=== PATIENT | female | born 1960 | race Caucasian/White ===

== ENCOUNTER 2023-09-28 17:07 | Observation (INO) ==
--- NOTE | 2023-09-28 17:22 | ED Triage Note ---
Date of Service September 28, 2023 Provider in Triage Author: Latasha Euceda History of Present Illness This patient was briefly evaluated while in triage. An abbreviated physical exam was performed. This patient is a 63-year-old Female who presents to the ED for evaluation of headache on left back of head and radiates to the front of the forehead, sudden onset at about 1pm today. Feeling dizzy as well. Has history of migraines, but hasn't had a significant one for three years. Feels weakness in the left shoulder, trouble lifting arm above head. No blood thinners. Physical Exam CONSTITUTIONAL: No acute distress. Well appearing. HEENT: PERRL, no facial droop NECK: Full ROM RESPIRATORY: Clear to auscultation bilaterally. Equal expansion bilaterally. CARDIOVASCULAR: Regular rate and rhythm. Normal peripheral perfusion. GASTROINTESTINAL: Soft NEUROLOGIC: Alert and oriented X 4 with normal affect. Slight weakness appreciated in left arm compared to right. No left leg weakness noted. No pronator drift. Seems off balance with standing/walking and notes feeling dizzy. Initial orders for labs and / or imaging were placed and patient was made a stroke alert, taken directly to CT from triage. Please see further documentation for the full ED course.
--- NOTE | 2023-09-28 17:36 | Emergency Department Note ---
Impression & Plan Left arm weakness, Hyponatremia, Headache ED Provider Note NAME: NIKUNJ STAPLETON AGE: 63 SEX: F : 1960 ARRIVES VIA: Walk-In INFORMANT: Patient, Triage report ED PROVIDER(S): Basilio Barahona MD CHIEF COMPLAINT: Left arm weakness, headache MEDICAL DECISION MAKING: Patient presents due to concern for left upper extremity weakness and associated headache. Code stroke was initiated from triage. Patient was evaluated after returning from CAT scan current NIH of 0. Patient may have subjective weakness but at least on exam does not have overt weakness although this also could have resolved. Patient CT head and CT angiography of the head and neck are negative. The patient was ordered headache cocktail. Blood work was also obtained at the initial time of presentation. No TNK given the patient's lack of deficits on exam and negative CT head and CT angiography of the head and neck. Patient with white count of 12 with a normal hemoglobin and platelet count kidney function unremarkable patient was noted to have hyponatremia of 127. The patient may have associated TIA related symptoms as the patient had complained of some left arm weakness. The patient did not have significant improvement with regard to her headache further management deferred to inpatient team as I did speak with the hospital service Dr. Lopez and the patient was admitted to the medicine service. Critical Care: I have personally spent 35 minutes of critical care time in direct management of this patient. This includes bedside care, interpretation of diagnostic studies, and testing, discussion with consultants, patient, and family members, and other require inpatient management activities. This 35 minutes is in excess of all separately billable procedures. Discussion w/ other healthcare providers: Dr. Lopez inpatient medicine service Prior /Outside records reviewed: None Differential diagnosis: Infection, dehydration, metabolic abnormality, hypo/hyperglycemia, electrolyte imbalance, anemia, UTI, pneumonia, thyroid dysfunction among others were considered. Diagnostics, as interpreted by me: ECG: Normal sinus rhythm, rate of 88, normal intervals, normal axis no ST elevations or TWI. Cardiac monitoring: An order was placed for continuous cardiac monitoring. The monitor shows a rate of 85 with sinus rhythm. Patient was placed on pulse oximetry Medical decision rules: None Imaging studies: I informally interpreted the patient's CT head does not show obvious ICH with formal report to follow. I informally interpreted the patient's chest x-ray which does not show obvious pneumonia or pneumothorax with formal report to follow. HPI: Patient presents due to concern for headache and left upper extremity weakness. The patient states that around 130 2:00 she was with her grandson when she developed a left-sided posterior headache which she described as "being struck with a softball." Patient denies any chest pains or shortness of breath no nausea vomiting. The patient states that her current headache pain is 7 out of 10 and has been constant. The patient thought that she did have associated left upper extremity weakness and the stroke here for evaluation. The patient does have a prior history of A-fib but is not anticoagulated. Patient denies any sensory deficits slurred speech or facial droop. No prior history of stroke or mini stroke or seizure. Patient denies any lower extremity weakness. Patient states that she is right-hand dominant. Patient states that she did try taking gabapentin for headache but this has not improved her symptoms. PAST MEDICAL HISTORY: See Below PAST SURGICAL HISTORY: See Below SOCIAL HISTORY: See Below HOME MEDICATIONS: See Below ALLERGIES: See Below VITALS: See Below PHYSICAL EXAMINATION: GENERAL: NAD, non-toxic. EYE EXAM: Normal conjunctiva. PERRL, no anisocoria and EOM's grossly intact w/o pain. OROPHARYNX: Moist mucus membranes, grossly normal dentition. NECK: Trachea midline, no stridor. Supple, no nuchal rigidity, no adenopathy, non-tender. No signs of meningismus. FROM of the neck with good chin to chest and neck extension. LUNGS: Clear to auscultation. Normal chest wall mechanics. HEART: NSR, no MRG. ABDOMEN: Abdomen soft, non-tender, no masses, no rebound or guarding. BACK: No CVA TTP. SKIN: No rashes and no bruising. UPPER EXTREMITIES: Upper extremities are grossly normal. LOWER EXTREMITIES: Grossly normal, no edema. NEURO EXAM: A&O x3, cranial nerves II-XII grossly intact, normal speech, moves all 4 extremities. 5 out of 5 strength in the bilateral upper and lower extremities no sensory deficits, good [id number] and no drift. Past Med/Surg History Problem List (Updated 09/29/23 @ 00:56 by Basilio Barahona MD) Headache (Acute) Hyponatremia (Acute) Left arm weakness (Acute) Hyponatremia Left-sided weakness Migraine H/O of hysterectomy with bilateral oophorectomy Esophageal reflux Seizure Irritable bowel syndrome Osteoarthritis HTN, goal below 140/90 COPD (chronic obstructive pulmonary disease) Fibromyalgia Atrial fibrillation (Chronic) Cervical radiculopathy (Acute) Medical History Status post myocardial infarction at age 24 Work related injury Surgical History S/P hysterectomy S/P cholecystectomy S/P appendectomy History of bilateral breast reduction surgery History of Julia-en-Y gastric bypass Family History Mother Breast cancer Ovarian cancer Myocardial infarction Pancreatitis Aunt Breast cancer Father Myocardial infarction Kidney failure Sister Myocardial infarction Brother Myocardial infarction Other Adrenal abnormality Denies family history of Colon cancer Prostate cancer Social History Smoking Status: Never smoker Second Hand Exposure: No; Do You Dip or Chew Tobacco: No; Hx Alcohol Use: No Hx Substance Use: No Preferred Language: Amharic Communication Ability: Effective Visual Impairment: No Limitations Hearing Ability: Normal [employer] Required: No Beliefs That Will Affect Care: None marital status: Current Living Situation: Spouse Current Living Situation Comment: with current occupational status: retired Other Information That Helps Us Care for You: No Feels Safe at Home: Yes Safety Concerns: Feels Safe At This Time Childhood Exposure to Second-Hand Smoke: Yes Diet: regular caffeine: Yes Dental Care, Regularly: Yes Physical Activity Frequency: Daily Seatbelt Use: sometimes Sunscreen Use: Yes Assistive Devices: None Allergies Allergies Allergy/AdvReac Type Severity Reaction Status Date / Time codeine Allergy Severe SHORT OF Verified 09/28/23 17:58 BREATH/RESP TROUBLE meperidine Allergy Severe SHORT OF Verified 09/28/23 17:58 BREATH/RESP TROUBLE Home Meds Home Medications Medication Instructions Recorded Confirmed atorvastatin 20 mg tablet 20 mg PO DAILY 05/07/22 09/28/23 diclofenac potassium 50 mg tablet 50 mg PO BID 05/07/22 09/28/23 diclofenac sodium 1 % topical gel 4 g topical DIRECTED PRN Pain 05/07/22 09/28/23 fluticasone 250 mcg-salmeterol 50 1 inh inhalation BID PRN Shortness 05/07/22 09/28/23 mcg/dose blistr powdr for Of Breath Or Wheezing inhalation (Advair Diskus) furosemide 40 mg tablet 40 mg PO DAILY 05/07/22 09/28/23 gabapentin 600 mg tablet 600 mg PO TID 05/07/22 09/28/23 lamotrigine 100 mg tablet 100 mg PO BID 05/07/22 09/28/23 meloxicam 15 mg tablet 15 mg PO DAILY 05/07/22 09/28/23 metaxalone 800 mg tablet 800 mg PO TID PRN NEEDED PER PT. 05/07/22 09/28/23 metoprolol tartrate 50 mg tablet 50 mg PO BID 05/07/22 09/28/23 sodium oxybate 500 mg/mL oral 1 g PO BID 05/07/22 09/28/23 solution (Xyrem) cyanocobalamin (vitamin B-12) 100 mcg IM MONTHLY 11/08/22 09/28/23 1,000 mcg/mL injection solution celecoxib 200 mg capsule (Celebrex) 200 mg PO DAILY 08/19/23 09/28/23 pantoprazole 40 mg tablet,delayed 40 mg PO DAILY 08/19/23 09/28/23 release rimegepant 75 mg disintegrating 75 mg PO DAILY PRN Migraine 08/19/23 09/28/23 tablet (Nurtec ODT) Headache pantoprazole 40 mg tablet,delayed 4 mg PO DIRECTED PRN 09/28/23 09/28/23 release NAUSEA/VOMITING Results & Data (ED) Vital Signs Vital Signs - 24 hr 09/28/23 17:17 09/28/23 17:44 09/28/23 17:44 Temperature 37.4 C Temperature Source Temporal Artery Scan Pulse Rate 97 H Pulse Rate [Apical] 91 H Pulse Rate from SpO2 Sensor Pulse Rhythm Regular Pulse Rhythm [Apical] Pulse Strength Normal Pulse Strength [Apical] Respiratory Rate 17 20 Respiratory Effort / Characteristics Non-Labored Non-Labored Respiratory Depth Normal Normal Respiratory Pattern Regular Blood Pressure 110/72 Blood Pressure [Right Arm] 148/78 H Blood Pressure Mean 84 Blood Pressure Mean [Right Arm] 101 Blood Pressure Position Sitting Blood Pressure Position [Right Arm] Pulse Oximetry 94 93 93 Oxygen Delivery Method Room Air Room Air Room Air Sepsis Recent Fever Within 48 Hours No Sepsis New/Unexplained Change in Mental Status No Sepsis Action Taken by Nursing No Action Required 09/28/23 17:54 09/28/23 18:00 09/28/23 18:00 Temperature Temperature Source Pulse Rate 88 88 Pulse Rate [Apical] Pulse Rate from SpO2 Sensor 88 88 Pulse Rhythm Pulse Rhythm [Apical] Pulse Strength Pulse Strength [Apical] Respiratory Rate 16 15 Respiratory Effort / Characteristics Respiratory Depth Respiratory Pattern Blood Pressure 112/81 Blood Pressure [Right Arm] Blood Pressure Mean 82 Blood Pressure Mean [Right Arm] Blood Pressure Position Blood Pressure Position [Right Arm] Pulse Oximetry 96 96 Oxygen Delivery Method Sepsis Recent Fever Within 48 Hours Sepsis New/Unexplained Change in Mental Status Sepsis Action Taken by Nursing 09/28/23 18:02 09/28/23 18:24 09/28/23 18:39 Temperature Temperature Source Pulse Rate 88 92 H Pulse Rate [Apical] 90 Pulse Rate from SpO2 Sensor Pulse Rhythm Pulse Rhythm [Apical] Pulse Strength Pulse Strength [Apical] Respiratory Rate 20 25 H 25 H Respiratory Effort / Characteristics Non-Labored Respiratory Depth Normal Respiratory Pattern Blood Pressure Blood Pressure [Right Arm] 112/81 Blood Pressure Mean Blood Pressure Mean [Right Arm] 91 Blood Pressure Position Blood Pressure Position [Right Arm] Pulse Oximetry 98 Oxygen Delivery Method Room Air Sepsis Recent Fever Within 48 Hours Sepsis New/Unexplained Change in Mental Status Sepsis Action Taken by Nursing 09/28/23 18:41 09/28/23 18:42 09/28/23 18:51 Temperature Temperature Source Pulse Rate 88 92 H 93 H Pulse Rate [Apical] Pulse Rate from SpO2 Sensor Pulse Rhythm Pulse Rhythm [Apical] Pulse Strength Pulse Strength [Apical] Respiratory Rate 26 H 22 Respiratory Effort / Characteristics Respiratory Depth Respiratory Pattern Blood Pressure Blood Pressure [Right Arm] Blood Pressure Mean Blood Pressure Mean [Right Arm] Blood Pressure Position Blood Pressure Position [Right Arm] Pulse Oximetry Oxygen Delivery Method Sepsis Recent Fever Within 48 Hours Sepsis New/Unexplained Change in Mental Status Sepsis Action Taken by Nursing 09/28/23 19:35 09/28/23 19:35 09/28/23 19:42 Temperature Temperature Source Pulse Rate 86 Pulse Rate [Apical] 86 Pulse Rate from SpO2 Sensor 86 Pulse Rhythm Pulse Rhythm [Apical] Regular Pulse Strength Pulse Strength [Apical] Normal Respiratory Rate 12 22 Respiratory Effort / Characteristics Non-Labored Respiratory Depth Normal Respiratory Pattern Regular Blood Pressure 112/68 Blood Pressure [Right Arm] 112/68 Blood Pressure Mean 75 Blood Pressure Mean [Right Arm] 82 Blood Pressure Position Blood Pressure Position [Right Arm] Lying Pulse Oximetry 93 92 Oxygen Delivery Method Room Air Sepsis Recent Fever Within 48 Hours Sepsis New/Unexplained Change in Mental Status Sepsis Action Taken by [facility] Medications Current Medication List: was personally reviewed by me Laboratory Data Attestation: I reviewed the patient's lab results. 09/28/23 17:41 09/28/23 23:24 Lab Results 09/28/23 09/28/23 09/28/23 Range/Units 17:28 17:41 19:26 WBC 12.51 H (4.8-10.8) K/ul RBC 4.08 L (4.20-5.40) M/uL Hgb 12.0 (12.0-16.0) g/dl Hct 36.2 L (37.0-47.0) % MCV 88.7 (80.0-100.0) fL MCH 29.4 (25.0-34.0) pg MCHC 33.1 (32.0-36.0) g/dL RDW Std Deviation 43.9 (36.4-46.3) fL RDW Coeff of Mary Carmen 13.6 (11.5-14.5) % Plt Count 202 (130-400) K/uL MPV 10.6 (9.4-12.4) fL Immature Gran % (Auto) 0.4 % Neut % (Auto) 90.2 % Lymph % (Auto) 4.6 % Long % (Auto) 4.6 % Eos % (Auto) 0.0 % Baso % (Auto) 0.2 % Neut # (Auto) 11.30 H (1.40-6.50) K/uL Lymph # (Auto) 0.57 L (1.20-3.40) K/uL Long # (Auto) 0.57 (0.11-0.59) K/uL Eos # (Auto) 0.00 (0.00-0.50) K/uL Baso # (Auto) 0.02 (0.00-0.20) K/uL Immature Gran # (Auto) 0.05 (0.01-0.20) K/uL PT 11.4 (9.0-12.0) Seconds INR 1.1 (0.9-1.1) APTT 27 (21-31) Seconds PTT Ratio 1.0 Sodium 127 L (136-145) mmol/L Potassium 3.8 (3.5-5.1) mmol/L Chloride 100 (98-107) mmol/L Carbon Dioxide 21 (21-32) mmol/L Anion Gap 6 (3-11) BUN 17 (6-23) mg/dl Creatinine 0.95 (0.6-1.2) mg/dl Est Cr Clr Drug Dosing 45.7 ml/min Est GFR ( Amer) 73.9 ml/min Est GFR (Non-Af Amer) 63.7 ml/min BUN/Creatinine Ratio 17.9 (10-20) Glucose 114 H (70-99(Fasting)) mg/dl Osmolality 284 (280-300) mOsm/kg Calcium 8.3 L (8.6-10.3) mg/dl Magnesium 1.8 (1.7-2.4) mg/dl Total Bilirubin 0.8 (0.2-1.0) mg/dl AST 17 (13-39) U/L ALT 15 (7-52) U/L Alkaline Phosphatase 117 H (34-104) U/L Troponin I High Sens (0-14) pg/ml Total Protein 6.3 (6.0-8.3) gm/dl Albumin 3.8 (3.4-5.0) gm/dl Globulin 2.5 (2.5-4.0) gm/dl Albumin/Globulin Ratio 1.5 (0.9-2) Urine Osmolality 320 L (500-800) mOsm/kg Urine Sodium 49 mmol/L Urine Potassium 23.1 mmol/L Urine Chloride 50 mmol/L Blood Type O Positive Antibody Screen NEGATIVE 09/28/23 Range/Units 19:50 WBC (4.8-10.8) K/ul RBC (4.20-5.40) M/uL Hgb (12.0-16.0) g/dl Hct (37.0-47.0) % MCV (80.0-100.0) fL MCH (25.0-34.0) pg MCHC (32.0-36.0) g/dL RDW Std Deviation (36.4-46.3) fL RDW Coeff of Mary Carmen (11.5-14.5) % Plt Count (130-400) K/uL MPV (9.4-12.4) fL Immature Gran % (Auto) % Neut % (Auto) % Lymph % (Auto) % Long % (Auto) % Eos % (Auto) % Baso % (Auto) % Neut # (Auto) (1.40-6.50) K/uL Lymph # (Auto) (1.20-3.40) K/uL Long # (Auto) (0.11-0.59) K/uL Eos # (Auto) (0.00-0.50) K/uL Baso # (Auto) (0.00-0.20) K/uL Immature Gran # (Auto) (0.01-0.20) K/uL PT (9.0-12.0) Seconds INR (0.9-1.1) APTT (21-31) Seconds PTT Ratio Sodium (136-145) mmol/L Potassium (3.5-5.1) mmol/L Chloride (98-107) mmol/L Carbon Dioxide (21-32) mmol/L Anion Gap (3-11) BUN (6-23) mg/dl Creatinine (0.6-1.2) mg/dl Est Cr Clr Drug Dosing ml/min Est GFR ( Amer) ml/min Est GFR (Non-Af Amer) ml/min BUN/Creatinine Ratio (10-20) Glucose (70-99(Fasting)) mg/dl Osmolality (280-300) mOsm/kg Calcium (8.6-10.3) mg/dl Magnesium (1.7-2.4) mg/dl Total Bilirubin (0.2-1.0) mg/dl AST (13-39) U/L ALT (7-52) U/L Alkaline Phosphatase (34-104) U/L Troponin I High Sens 4.0 (0-14) pg/ml Total Protein (6.0-8.3) gm/dl Albumin (3.4-5.0) gm/dl Globulin (2.5-4.0) gm/dl Albumin/Globulin Ratio (0.9-2) Urine Osmolality (500-800) mOsm/kg Urine Sodium mmol/L Urine Potassium mmol/L Urine Chloride mmol/L Blood Type Antibody Screen Administered Medications Gabapentin (Gabapentin 600 Mg Tab) 600 mg PO TID EILEEN Stop: 10/28/23 23:01 Last Admin: 09/29/23 00:37 Dose: 600 mg Documented By: [id number] Heparin Sodium (Porcine) (Heparin Sod 5,000 Unit/0.5 Ml Vial) 5,000 units SQ Q12 [facility] Stop: 10/28/23 23:01 Last Admin: 09/29/23 00:37 Dose: 5,000 units Documented By: [id number] Ketorolac Tromethamine (Ketorolac Tromethamine 15 Mg/Ml Vial) 10 mg IV Q6H PRN PRN Reason: Pain Stop: 10/04/23 00:00 Last Admin: 09/28/23 23:48 Dose: 10 mg Documented By: [id number] Lamotrigine (Lamotrigine 100 Mg Tab) 100 mg PO BID [facility]; Protocol Stop: 10/28/23 23:01 Last Admin: 09/29/23 00:37 Dose: 100 mg Documented By: [id number] Metoprolol Tartrate (Metoprolol Tartrate 50 Mg Tab) 50 mg PO BID [facility] Stop: 10/28/23 23:01 Last Admin: 09/29/23 00:37 Dose: 50 mg Documented By: [id number] Discontinued Medications Acetaminophen (Acetaminophen 500 Mg Tab) 1,000 mg PO NOW STA Stop: 09/28/23 18:09 Last Admin: 09/28/23 18:15 Dose: 1,000 mg Documented By: FANTASMA Aspirin (Aspirin Chew 324 Mg) 324 mg PO NOW STA Stop: 09/28/23 18:43 Last Admin: 09/28/23 19:38 Dose: 324 mg Documented By: JOSH Sodium Chloride (Nss) 1,000 mls @ 999 mls/hr IV .Q1H1M [facility] Stop: 09/28/23 19:15 Last Infusion: 09/28/23 19:12 Dose: Infused Documented By: Admin: 09/28/23 18:11 Dose: 999 mls/hr Documented By: FANTASMA Magnesium Sulfate/Dextrose (Magnesium Sulfate / D5w) 1 gm in 100 mls @ 300 mls/hr IV NOW ONE Stop: 09/28/23 18:27 Last Infusion: 09/28/23 19:00 Dose: Infused Documented By: Admin: 09/28/23 18:15 Dose: 300 mls/hr Documented By: FANTASMA Ioversol (Optiray 320 125ml) 120 ml IV ONCE ONE Stop: 09/28/23 17:37 Last Admin: 09/28/23 17:37 Dose: 120 ml Documented By: JERRY Ketorolac Tromethamine (Ketorolac Tromethamine 15 Mg/Ml Vial) 10 mg IV NOW STA Stop: 09/28/23 18:09 Last Admin: 09/28/23 18:15 Dose: 10 mg Documented By: ES Ondansetron HCl (Ondansetron Inj 2 Mg/Ml 2 Ml Vial) 4 mg IV NOW STA Stop: 09/28/23 18:09 Last Admin: 09/28/23 18:15 Dose: 4 mg Documented By: ES Imaging Data Radiologist's Impression: Head CT 09/28/23 17:23 CT angio head w con, CT angio neck with con, CT head/brain wo con CLINICAL HISTORY: 63 years-old Female with neuro deficit, acute stroke suspected. Acute headache with dizziness COMPARISON STUDY: None TECHNIQUE: Unenhanced axial CT scan of the brain is performed. Subsequently, following the IV administration of 120 cc of Optiray, CT angiogram of the head and neck was performed from the aortic arch to the skull apex. Images are reviewed in the axial, sagittal, and coronal planes. 3-D MIPS images are created and assessed. IV contrast was administered without complication. All measurements were obtained according to NASCET criteria. A dose lowering technique was utilized adhering to the principles of ALARA. CT DOSE: 1053.42 mGy.cm FINDINGS: CT BRAIN: There is no acute intracranial hemorrhage, midline shift, hydrocephalus, intracranial mass, territorial ischemia or abnormal extra-axial collections. Involutional changes with white matter hypodensities suggestive of probable chronic microvascular ischemic disease. No abnormal intra-axial or extra-axial enhancement. Mastoid air cells and middle ear cavities are clear. No calvarial fracture. Paranasal sinuses are clear. CT ANGIOGRAM OF THE HEAD AND NECK: Atherosclerosis of the thoracic aorta. Into the innominate imaged subclavian arteries. The common and internal carotid arteries appear patent. There is mild atherosclerotic plaque of the carotid bulbs without significant stenosis. The bilateral anterior and middle cerebral arteries are also patent. The vertebrobasilar system and posterior cerebral arteries are widely patent. There is no aneurysm, high-grade stenosis, or proximal branch occlusion identified. Dural sinuses appear patent. Lung apices are clear. Unremarkable thyroid. Degenerative changes of the cervical spine. IMPRESSION: 1. No acute intracranial abnormality. 2. Unremarkable CTA of the head and neck. ACT 112: Negative or not required by law. The above report was generated using voice recognition software. It may contain grammatical, syntax or spelling errors. Electronically signed by: Emerson Camacho M.D. 09/28/2023 5:53 PM Chest X-Ray 09/28/23 17:26 XR chest 1V portable HISTORY: 63 years-old Female neuro deficit, acute stroke suspected acute strokelike symptoms COMPARISON: 09/12/2011 TECHNIQUE: AP view of the chest FINDINGS: Cardiomediastinal and hilar silhouettes are within normal limits. Mild right hemidiaphragmatic elevation. No pneumothorax, pleural effusion, airspace consolidation or pulmonary edema. Bones appear intact. IMPRESSION: No acute process. ACT 112: Negative or not required by law. The above report was generated using voice recognition software. It may contain grammatical, syntax or spelling errors. Electronically signed by: Emerson Camacho M.D. 09/28/2023 6:19 PM Head CTA 09/28/23 17:26 CT angio head w con, CT angio neck with con, CT head/brain wo con CLINICAL HISTORY: 63 years-old Female with neuro deficit, acute stroke suspected. Acute headache with dizziness COMPARISON STUDY: None TECHNIQUE: Unenhanced axial CT scan of the brain is performed. Subsequently, following the IV administration of 120 cc of Optiray, CT angiogram of the head and neck was performed from the aortic arch to the skull apex. Images are reviewed in the axial, sagittal, and coronal planes. 3-D MIPS images are created and assessed. IV contrast was administered without complication. All measurements were obtained according to NASCET criteria. A dose lowering technique was utilized adhering to the principles of ALARA. CT DOSE: 1053.42 mGy.cm FINDINGS: CT BRAIN: There is no acute intracranial hemorrhage, midline shift, hydrocephalus, intracranial mass, territorial ischemia or abnormal extra-axial collections. Involutional changes with white matter hypodensities suggestive of probable chronic microvascular ischemic disease. No abnormal intra-axial or extra-axial enhancement. Mastoid air cells and middle ear cavities are clear. No calvarial fracture. Paranasal sinuses are clear. CT ANGIOGRAM OF THE HEAD AND NECK: Atherosclerosis of the thoracic aorta. Into the innominate imaged subclavian arteries. The common and internal carotid arteries appear patent. There is mild atherosclerotic plaque of the carotid bulbs without significant stenosis. The bilateral anterior and middle cerebral arteries are also patent. The vertebrobasilar system and posterior cerebral arteries are widely patent. There is no aneurysm, high-grade stenosis, or proximal branch occlusion identified. Dural sinuses appear patent. Lung apices are clear. Unremarkable thyroid. Degenerative changes of the cervical spine. IMPRESSION: 1. No acute intracranial abnormality. 2. Unremarkable CTA of the head and neck. ACT 112: Negative or not required by law. The above report was generated using voice recognition software. It may contain grammatical, syntax or spelling errors. Electronically signed by: Emerson Camacho M.D. 09/28/2023 5:53 PM Neck CTA 09/28/23 17:26 CT angio head w con, CT angio neck with con, CT head/brain wo con CLINICAL HISTORY: 63 years-old Female with neuro deficit, acute stroke suspected. Acute headache with dizziness COMPARISON STUDY: None TECHNIQUE: Unenhanced axial CT scan of the brain is performed. Subsequently, following the IV administration of 120 cc of Optiray, CT angiogram of the head and neck was performed from the aortic arch to the skull apex. Images are reviewed in the axial, sagittal, and coronal planes. 3-D MIPS images are created and assessed. IV contrast was administered without complication. All measurements were obtained according to NASCET criteria. A dose lowering technique was utilized adhering to the principles of ALARA. CT DOSE: 1053.42 mGy.cm FINDINGS: CT BRAIN: There is no acute intracranial hemorrhage, midline shift, hydrocephalus, intracranial mass, territorial ischemia or abnormal extra-axial collections. Involutional changes with white matter hypodensities suggestive of probable chronic microvascular ischemic disease. No abnormal intra-axial or extra-axial enhancement. Mastoid air cells and middle ear cavities are clear. No calvarial fracture. Paranasal sinuses are clear. CT ANGIOGRAM OF THE HEAD AND NECK: Atherosclerosis of the thoracic aorta. Into the innominate imaged subclavian arteries. The common and internal carotid arteries appear patent. There is mild atherosclerotic plaque of the carotid bulbs without significant stenosis. The bilateral anterior and middle cerebral arteries are also patent. The vertebrobasilar system and posterior cerebral arteries are widely patent. There is no aneurysm, high-grade stenosis, or proximal branch occlusion identified. Dural sinuses appear patent. Lung apices are clear. Unremarkable thyroid. Degenerative changes of the cervical spine. IMPRESSION: 1. No acute intracranial abnormality. 2. Unremarkable CTA of the head and neck. ACT 112: Negative or not required by law. The above report was generated using voice recognition software. It may contain grammatical, syntax or spelling errors. Electronically signed by: Emerson Camacho M.D. 09/28/2023 5:53 PM Discharge Plan Visit Data Chief Complaint: Head Pain Stated Complaint: LOWER BACK OF HEAD, INTO EYE PAINS ED Provider: Basilio Barahona Discharge Problem: Left arm weakness, Hyponatremia, Headache Patient Disposition: Admitted As Inpatient Discharge Instructions Interventions: ED Discharge Assessment Last Done: 09/28/23 22:42 Discharge Problem: Headache Qualifiers: Headache type: unspecified Headache chronicity pattern: acute headache I ntractability: intractable Qualified Code(s): R51.9 - Headache, unspecified
[2023-09-28] MEDS: OPTIRAY 320 125ml IV ONE (17:37)
--- NOTE | 2023-09-28 17:55 | CT Scan Report ---
CT angio head w con, CT angio neck with con, CT head/brain wo con CLINICAL HISTORY: 63 years-old Female with neuro deficit, acute stroke suspected. Acute headache w ith dizziness COMPARISON STUDY: None TECHNIQUE: Unenhanced axial CT scan of the brain is performed. Subsequently, following the IV adminis tration of 120 cc of Optiray, CT angiogram of the head and neck was performed from the aortic arch to the skull apex. Images are reviewed in the axial, sagittal, and coronal planes. 3-D MIPS images are created and assessed. IV contrast was administered without complication. All measurements were obtain ed according to NASCET criteria. A dose lowering technique was utilized adhering to the principles of ALARA. CT DOSE: 1053.42 mGy.cm FINDINGS: CT BRAIN: There is no acute intracranial hemorrhage, midline shift, hydrocephalus, intracranial mass, territori al ischemia or abnormal extra-axial collections. Involutional changes with white matter hypodensities suggestive of probable chronic microvascular ischemic disease. No abnormal intra-axial or extra-axia l enhancement. Mastoid air cells and middle ear cavities are clear. No calvarial fracture. Paranasal sinuses are clear. CT ANGIOGRAM OF THE HEAD AND NECK: Atherosclerosis of the thoracic aorta. Into the innominate imaged subclavian arteries. The common and internal carotid arteries appear patent. There is mild atherosclerotic plaque of the carotid bulbs w ithout significant stenosis. The bilateral anterior and middle cerebral arteries are also patent. The vertebrobasilar system and posterior cerebral arteries are widely patent. There is no aneurysm, high -grade stenosis, or proximal branch occlusion identified. Dural sinuses appear patent. Lung apices are clear. Unremarkable thyroid. Degenerative changes of the cervical spine. IMPRESSION: 1. No acute intracranial abnormality. 2. Unremarkable CTA of the head and neck. ACT 112: Negative or not required by law. The above report was generated using voice recognition software. It may contain grammatical, syntax o r spelling errors. Electronically signed by: Emerson Camacho M.D. 09/28/2023 5:53 PM
[2023-09-28 18:04] LABS: Hematocrit (blood only) 36.2 % (37.0-47.0); Mean Corpuscular Hemoglobin 29.4 pg (25.0-34.0); Mean Corpuscular Hgb Conc 33.1 g/dL (32.0-36.0); Mean Corpuscular Volume 88.7 fL (80.0-100.0); Mean Platelet Volume 10.6 fL (9.4-12.4); Platelet Count 202 K/uL (130-400); RDW Coefficient of Variation 13.6 % (11.5-14.5); RDW Standard Deviation 43.9 fL (36.4-46.3); Red Blood Count 4.08 M/uL (4.20-5.40); White Blood Count 12.51 K/ul (4.8-10.8)
[2023-09-28] MEDS: SODIUM CHLORIDE 0.9% 1,000 ML IV SCH (18:11)
[2023-09-28] MEDS: ONDANSETRON INJ 2 MG/ML 2 ML VIAL IV STA (18:15)
[2023-09-28] MEDS: ACETAMINOPHEN 500 MG TAB PO STA (18:15)
[2023-09-28] MEDS: KETOROLAC TROMETHAMINE 15 MG/ML VIAL IV STA (18:15)
[2023-09-28] MEDS: MAGNESIUM SULFATE / D5W 1 GM/100 ML BAG IV ONE (18:15)
--- NOTE | 2023-09-28 18:20 | XRay Report ---
XR chest 1V portable HISTORY: 63 years-old Female neuro deficit, acute stroke suspected acute strokelike symptoms COMPARISON: 09/12/2011 TECHNIQUE: AP view of the chest FINDINGS: Cardiomediastinal and hilar silhouettes are within normal limits. Mild right hemidiaphragmatic elevat ion. No pneumothorax, pleural effusion, airspace consolidation or pulmonary edema. Bones appear intac t. IMPRESSION: No acute process. ACT 112: Negative or not required by law. The above report was generated using voice recognition software. It may contain grammatical, syntax o r spelling errors. Electronically signed by: Emerson Camacho M.D. 09/28/2023 6:19 PM
[2023-09-28 18:23] LABS: Basophils # (auto) 0.02 K/uL (0.00-0.20); Basophils % (auto) 0.2 %; Immature Granulocytes # (auto) 0.05 K/uL (0.01-0.20); Immature Granulocytes % (auto) 0.4 %; Lymphocytes # (auto) 0.57 K/uL (1.20-3.40); Lymphocytes % (auto) 4.6 %; Monocytes # (auto) 0.57 K/uL (0.11-0.59); Monocytes % (auto) 4.6 %; Neutrophils % (auto) 90.2 %
[2023-09-28 18:24] LABS: Albumin Globulin Ratio 1.5 (0.9-2); Albumin Level 3.8 gm/dl (3.4-5.0); BUN Creatinine Ratio 17.9 (10-20); Bilirubin,Total 0.8 mg/dl (0.2-1.0); Calcium 8.3 mg/dl (8.6-10.3); Creatinine Clr Calc Pharmacy 45.7 ml/min; Est GFR (African American) 73.9 ml/min; Est GFR (Non-African American) 63.7 ml/min; Globulin 2.5 gm/dl (2.5-4.0); Magnesium 1.8 mg/dl (1.7-2.4); Potassium 3.8 mmol/L (3.5-5.1); Total Protein 6.3 gm/dl (6.0-8.3)
[2023-09-28 18:36] LABS: INR 1.1 (0.9-1.1); Partial Thromboplastin Time 27 Seconds (21-31); Prothrombin Time 11.4 Seconds (9.0-12.0)
--- NOTE | 2023-09-28 18:53 | History & Physical Report ---
Date of Service September 28, 2023 Assessment & Plan (1) Left-sided weakness: Plan: Headache, left arm weakness Sudden onset at 1 PM with dizziness, headache, L arm weakness. Had some weakness with shoulder flexion/abduction by report this is resolved at time of emergency department evaluation Patient does continue to have a left-sided headache. She has had near identical symptoms including left-sided weakness with migraines in the past, and as recently as around 4 months ago however has also had TIA and has A-fib not on anticoagulation. MRI ordered for completion. Given that TIA cannot be excluded we will switch aspirin to Plavix. No neurologic deficits at time of bedside assessment DDx includes complex migraine, TIA, CVA CTAhead/neck without acute findings MRI pending Received full dose aspirin, switch to Plavix 09/28 as needed - Last echo was w/ bubble studdy, no PFO. - Is on atorva 20, ideally would uptitrate but has had issues with myalgias superimposed on her fibromyalgia Hypertension Normotensive on admission, permissive hypertension pending MRI (2) Migraine: Plan: - As noted (3) Hyponatremia: Plan: Hyponatremia Does not appear overtly volume overloaded, feels she has reasonable p.o. intake, no known cancer DDx include solute depletion, SIADH. Is on Lamictal. Urine/serum osmolality and sodium are pending. - Fluid restricted (4) Seizure: Plan: Without recent seizure. Current episode did not have any loss of consciousness or seizure-like activity. Lamictal continued (5) COPD (chronic obstructive pulmonary disease): Plan: COPD - From second hand smoking, no personal hx of tobacco use -Continue home inhalers No wheezing, no evidence of exacerbation (6) Atrial fibrillation: Plan: Did discuss A-fib anticoagulation given her [id number] is at least 3 points given gender, hypertension, and history of prior TIA. 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 She is in sinus on admission. Plan Chronic stable issues: Past history of seizure. No recent seizure. Continue Lamictal Esophageal reflux/erosive gastritis: No current symptoms continue PPI. Increased risk of bleeding with anticoagulation COPD: From secondhand smoking, no personal tobacco use. No acute exacerbation. Continue home inhalers DVT prophylaxis: Heparin Disposition: Medical telemetry CODE STATUS: DNR/DNI. Confirmed with patient on admission. Diet: Heart healthy History of Present Illness Primary Care Provider: Patricia Yañez MD Haja is a 63-year-old female with a past medical history of seizure, COPD, hypertension, A-fib not on anticoagulation, and cervical radiculopathy who presented to the ER as a stroke alert for left posterior headache with left arm weakness. At time of emergency provider exam NIHSS was 0. CTAhead/neck without acute intracranial abnormality, chest x-ray without acute finding Normotensive with regular pulse at time of consultation Patient is with hyponatremia at 127, last baseline 1 year ago was 142. Has a mild leukocytosis without left shift. EKG on admission normal sinus rhythm, ST depressions in anteroseptal territory without chest pain. Patient did have a stress test which was normal September 2022 1pm sudden onset of severe L sided headache similar to prior migraines focused in the back and top. Usually gabapentin/Xyrem works well but hasn't needed it in a while. Last migraine was about 4 months ago. Had L arm weakness today with her headache that lasted for 20 minutes. Has had similar weakness in her arm with prior migraines. No numbness or tingling. No syncope. Dizzy and lighheaded with some room spinning, but did not pass out. +nausea. No recent colds or illnesses. +allergies. No cough. no sputum production. no fe vers, chills, or sweats No chest pain. Very active gardinging withotu dyspnea/CP. Takes lasix for leg swelling, denies hx pulmonary edema but does have some positional dyspnea. Cannot lay back due to past back injury. Thinks she can tolerate an MRI. 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 Hx of afib. Was in afib about [address] Shahid in [facility]. Has not been recommended for afib ppx. Hx of TIA many years ago, no residual deficits. This felt different from migraines and has more shortness of breath and facial weakness and spasms at the time. Takes a baby aspirin daily No dysuria, hematuria, polyuria Medical History: Reviewed Medications: Reviewed Surgical History: Reviewed Family history: Reviewed Allergies: Reviewed Social History: No tobacco/etoh Code Status:Surrogate DM would be her son Oliver, would prefer her son over her as has had some dementia in older age. DNR/DNI Allergies Allergy/AdvReac Type Severity Reaction Status Date / Time codeine Allergy Severe SHORT OF Verified 09/28/23 17:58 BREATH/RESP TROUBLE meperidine Allergy Severe SHORT OF Verified 09/28/23 17:58 BREATH/RESP TROUBLE Home Medications Medication Instructions Recorded Confirmed Type atorvastatin 20 mg tablet 20 mg PO DAILY 05/07/22 09/28/23 History diclofenac potassium 50 mg tablet 50 mg PO BID 05/07/22 09/28/23 History diclofenac sodium 1 % topical gel 4 g topical DIRECTED PRN Pain 05/07/22 09/28/23 History fluticasone 250 mcg-salmeterol 50 1 inh inhalation BID PRN Shortness 05/07/22 09/28/23 History mcg/dose blistr powdr for Of Breath Or Wheezing inhalation (Advair Diskus) furosemide 40 mg tablet 40 mg PO DAILY 05/07/22 09/28/23 History gabapentin 600 mg tablet 600 mg PO TID 05/07/22 09/28/23 History lamotrigine 100 mg tablet 100 mg PO BID 05/07/22 09/28/23 History meloxicam 15 mg tablet 15 mg PO DAILY 05/07/22 09/28/23 History metaxalone 800 mg tablet 800 mg PO TID PRN NEEDED PER PT. 05/07/22 09/28/23 History metoprolol tartrate 50 mg tablet 50 mg PO BID 05/07/22 09/28/23 History sodium oxybate 500 mg/mL oral 1 g PO BID 05/07/22 09/28/23 History solution (Xyrem) cyanocobalamin (vitamin B-12) 100 mcg IM MONTHLY 11/08/22 09/28/23 History 1,000 mcg/mL injection solution celecoxib 200 mg capsule (Celebrex) 200 mg PO DAILY 08/19/23 09/28/23 History pantoprazole 40 mg tablet,delayed 40 mg PO DAILY 08/19/23 09/28/23 History release rimegepant 75 mg disintegrating 75 mg PO DAILY PRN Migraine 08/19/23 09/28/23 History tablet (Nurtec ODT) Headache pantoprazole 40 mg tablet,delayed 4 mg PO DIRECTED PRN 09/28/23 09/28/23 History release NAUSEA/VOMITING Past Med/Surg History Problem List (Updated 09/28/23 @ 19:30 by Asim Lopez MD) Hyponatremia Left-sided weakness Migraine H/O of hysterectomy with bilateral oophorectomy Esophageal reflux Seizure Irritable bowel syndrome Osteoarthritis HTN, goal below 140/90 COPD (chronic obstructive pulmonary disease) Fibromyalgia Atrial fibrillation (Chronic) Cervical radiculopathy (Acute) Medical History Status post myocardial infarction at age 24 Work related injury Surgical History S/P hysterectomy S/P cholecystectomy S/P appendectomy History of bilateral breast reduction surgery History of Julia-en-Y gastric bypass Family History Mother Breast cancer Ovarian cancer Myocardial infarction Pancreatitis Aunt Breast cancer Father Myocardial infarction Kidney failure Sister Myocardial infarction Brother Myocardial infarction Other Adrenal abnormality Denies family history of Colon cancer Prostate cancer Social History Smoking Status: Never smoker Second Hand Exposure: No; Do You Dip or Chew Tobacco: No; Hx Alcohol Use: No Hx Substance Use: No Preferred Language: Dominican Communication Ability: Effective Visual Impairment: No Limitations Hearing Ability: Normal marital status: Current Living Situation: Spouse current occupational status: retired Feels Safe at Home: Yes Childhood Exposure to Second-Hand Smoke: Yes Diet: regular caffeine: Yes Dental Care, Regularly: Yes Physical Activity Frequency: Daily Seatbelt Use: sometimes Sunscreen Use: Yes Physical Exam Physical Exam: General: A&Ox3. NAD. Cooperative. HEENT: Atraumatic, normocephalic. Pulm: CTAB A&P. -wheezes, -rales, -rhonchi. Symmetrical chest rise. No increased work of breathing. No respiratory distress. Cardiac: RRR, -mrg. Radial pulses intact and symmetrical. Abdominal: Nontender, nondistended, soft. BS present. CRANIAL NERVES: II: Pupils equal and reactive, no relative afferent pupillary defect, no VF cuts III, IV, : EOM intact, no gaze preference or deviation, no nystagmus. 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 LUE: 5/5 Shoulder internal rotation, external rotation, flexionn 5/5 Elbow flexion, wrist flexion/extensi on 5/5 accounting software specialist strength RLE: 5/5 to hip flexion, knee flexion/extensi on, ankle dorsiflexion/plantarflexion LLE: 5/5 to hip flexion, knee flexion/extensi on, ankle dorsiflexion/plantarflexion SENSORY: Normal to touch in upper and lower extremities without deficit or asymmetry COORD: no tremor, no dysmetria Results & Data Results & Data Vital Signs (Past 12 Hours) Vital Signs Temp Pulse Pulse Resp BP BP Pulse Ox 09/28/23 18:41 88 09/28/23 18:02 90 20 112/81 98 09/28/23 17:44 93 09/28/23 17:44 91 H 20 148/78 H 93 09/28/23 17:17 37.4 C 97 H 17 110/72 94 O2 Del Method 09/28/23 18:41 09/28/23 18:02 Room Air 09/28/23 17:44 Room Air 09/28/23 17:44 Room Air 09/28/23 17:17 Room Air PG Care Time/CCT Total # of Minutes Spent Total Time Spent with Patient: Total time spent is greater than 50% in coordination of care (as documented) at patient's floor/unit and/or counseling patient: Coding Level of Care Code 41907 INT INP/OBS CARE 3/75MIN Diagnoses Left-sided weakness R53.1 Migraine G43.909 Hyponatremia E87.1 Seizure R56.9 COPD (chronic obstructive pulmonary disease) J44.9 Atrial fibrillation I48.91
[2023-09-28] MEDS: ASPIRIN CHEW 324 MG PO STA (19:38)
[2023-09-28] MEDS ORDERED: LABETALOL HCL IV 5 MG/ML 20ML IV PRN (19:53)
[2023-09-28] MEDS ORDERED: PHARMACIST DISCHARGE MED REC CONSULT PRN (19:53)
[2023-09-28] MEDS ORDERED: ONDANSETRON INJ 2 MG/ML 2 ML VIAL IV PRN (19:58)
[2023-09-28 20:08] LABS: Urine Potassium 23.1 mmol/L
--- NOTE | 2023-09-28 23:18 | Magnetic Resonance Report ---
Exam(s): MRI HEAD Without Contrast EXAM: MR Head Without Intravenous Contrast CLINICAL HISTORY: Reason for exam: stroke/cva r/o. TECHNIQUE: Magnetic resonance images of the head/brain without intravenous contrast in multiple planes. COMPARISON: Comparison made to prior head CT from September 28, 2023. FINDINGS: Brain: Mild nonspecific white matter changes. No mass. No hemorrhage. No acute infarct. The flow voids at the base of the brain are intact. Ventricles: Unremarkable. No ventriculomegaly. Bones/joints: Unremarkable. No acute fracture. Sinuses: Chronic ethmoid sinusitis. No acute sinusitis. Mastoid air cells: Unremarkable as visualized. No mastoid effusion. Orbits: Unremarkable as visualized. IMPRESSION: No evidence of acute intracranial pathology. Electronically signed by: Mayi French MD 09/28/23 23:18 PM
[2023-09-28] MEDS ORDERED: FLUTICASONE/VILANTEROL 200/25MCG 14 PUFFS/INHALER INH PRN (23:48)
[2023-09-28] MEDS: KETOROLAC TROMETHAMINE 15 MG/ML VIAL IV PRN (23:48)
[2023-09-29 00:02] LABS: BUN Creatinine Ratio 15.9 (10-20); Calcium 8.4 mg/dl (8.6-10.3); Est GFR (African American) 88.3 ml/min; Est GFR (Non-African American) 76.2 ml/min; Potassium 4.2 mmol/L (3.5-5.1)
[2023-09-29] MEDS: METOPROLOL TARTRATE 50 MG TAB PO SCH (00:37)
[2023-09-29] MEDS: HEPARIN SOD 5,000 UNIT/0.5 ML VIAL SQ SCH (00:37)
[2023-09-29] MEDS: GABAPENTIN 600 MG TAB PO SCH (00:37)
[2023-09-29] MEDS: lamoTRIgine 100 MG TAB PO SCH (00:37)
[2023-09-29] MEDS ORDERED: ACETAMINOPHEN 500 MG TAB PO PRN (02:00)
[2023-09-29 04:38] LABS: Basophils # (auto) 0.03 K/uL (0.00-0.20); Basophils % (auto) 0.3 %; Eosinophils # (auto) 0.03 K/uL (0.00-0.50); Eosinophils % (auto) 0.3 %; Hematocrit (blood only) 39.7 % (37.0-47.0); Immature Granulocytes # (auto) 0.03 K/uL (0.01-0.20); Immature Granulocytes % (auto) 0.3 %; Lymphocytes # (auto) 1.42 K/uL (1.20-3.40); Lymphocytes % (auto) 12.4 %; Mean Corpuscular Hemoglobin 29.3 pg (25.0-34.0); Mean Corpuscular Hgb Conc 32.7 g/dL (32.0-36.0); Mean Corpuscular Volume 89.4 fL (80.0-100.0); Mean Platelet Volume 10.8 fL (9.4-12.4); Monocytes # (auto) 0.83 K/uL (0.11-0.59); Monocytes % (auto) 7.3 %; Neutrophils # (auto) 9.09 K/uL (1.40-6.50); Neutrophils % (auto) 79.4 %; Platelet Count 199 K/uL (130-400); RDW Coefficient of Variation 13.8 % (11.5-14.5); RDW Standard Deviation 45.2 fL (36.4-46.3); Red Blood Count 4.44 M/uL (4.20-5.40); White Blood Count 11.43 K/ul (4.8-10.8)
[2023-09-29 05:45] LABS: BUN Creatinine Ratio 16.5 (10-20); Calcium 8.5 mg/dl (8.6-10.3); Chol HDL Ratio 2.1 (0-5); Creatinine Clr Calc Pharmacy 50.7 ml/min; Est GFR (African American) 84.5 ml/min; Est GFR (Non-African American) 72.9 ml/min; Potassium 3.8 mmol/L (3.5-5.1)
[2023-09-29 07:28] LABS: BUN Creatinine Ratio 16.5 (10-20); Calcium 8.5 mg/dl (8.6-10.3); Creatinine Clr Calc Pharmacy 50.7 ml/min; Est GFR (African American) 84.5 ml/min; Est GFR (Non-African American) 72.9 ml/min
[2023-09-29 07:36] LABS: Estimated Average Glucose 123 mg/dl; Hemoglobin A1C 5.9 % (4.5-5.6)
[2023-09-29] MEDS: ATORVASTATIN 20 MG TAB PO SCH (08:06)
[2023-09-29] MEDS: FUROSEMIDE 40 MG TAB PO SCH (08:08)
[2023-09-29] MEDS: PANTOprazole 40 MG TAB PO SCH (08:08)
[2023-09-29] MEDS: CLOPIDOGREL BISULFATE 75 MG TAB PO SCH (08:08)
--- NOTE | 2023-09-29 09:20 | Neurology Consultation ---
Date of Consultation September 29, 2023 Assessment & Plan (1) Migraine syndrome: History of Present Illness Attending Physician: Vineet Lozada MD History of Present Illness pt this morning feeling well. no more headache. mri brain negative. chart reviewed. pt asymptomatic now. pt does have long time neurologist at [place] and he is retiring soon. [employer] usually works for her migraine. admission HPI: Haja is a 63-year-old female with a past medical history of seizure, COPD, hypertension, A-fib not on anticoagulation, and cervical radiculopathy who presented to the ER as a stroke alert for left posterior headache with left arm weakness. At time of emergency provider exam NIHSS was 0. CTAhead/neck without acute intracranial abnormality, chest x-ray without acute finding Normotensive with regular pulse at time of consultation Patient is with hyponatremia at 127, last baseline 1 year ago was 142. Has a mild leukocytosis without left shift. EKG on admission normal sinus rhythm, ST depressions in anteroseptal territory without chest pain. Patient did have a stress test which was normal September 2022 1pm sudden onset of severe L sided headache similar to prior migraines focused in the back and top. Usually gabapentin/Xyrem works well but hasn't needed it in a while. Last migraine was about 4 months ago. Had L arm weakness today with her headache that lasted for 20 minutes. Has had similar weakness in her arm with prior migraines. No numbness or tingling. No syncope. Dizzy and lighheaded with some room spinning, but did not pass out. +nausea. No recent colds or illnesses. +allergies. No cough. no sputum production. no fevers, chills, or sweats No chest pain. Very active gardinging withotu dyspnea/CP. Takes lasix for leg swelling, denies hx pulmonary edema but does have some positional dyspnea. Cannot lay back due to past back injury. Thinks she can tolerate an MRI. 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 Hx of afib. Was in afib about [address] Shahid in [facility]. Has not been recommended for afib ppx. Hx of TIA many years ago, no residual deficits. This felt different from migraines and has more shortness of breath and facial weakness and spasms at the time. Takes a baby aspirin daily No dysuria, hematuria, polyuria Allergies Allergy/AdvReac Type Severity Reaction Status Date / Time codeine Allergy Severe SHORT OF Verified 09/28/23 17:58 BREATH/RESP TROUBLE meperidine Allergy Severe SHORT OF Verified 09/28/23 17:58 BREATH/RESP TROUBLE Home Medications Medication Instructions Recorded Confirmed Type atorvastatin 20 mg tablet 20 mg PO DAILY 05/07/22 09/28/23 History diclofenac potassium 50 mg tablet 50 mg PO BID 05/07/22 09/28/23 History diclofenac sodium 1 % topical gel 4 g topical DIRECTED PRN Pain 05/07/22 09/28/23 History fluticasone 250 mcg-salmeterol 50 1 inh inhalation BID PRN Shortness 05/07/22 09/28/23 History mcg/dose blistr powdr for Of Breath Or Wheezing inhalation (Advair Diskus) furosemide 40 mg tablet 40 mg PO DAILY 05/07/22 09/28/23 History gabapentin 600 mg tablet 600 mg PO TID 05/07/22 09/28/23 History lamotrigine 100 mg tablet 100 mg PO BID 05/07/22 09/28/23 History meloxicam 15 mg tablet 15 mg PO DAILY 05/07/22 09/28/23 History metaxalone 800 mg tablet 800 mg PO TID PRN NEEDED PER PT. 05/07/22 09/28/23 History metoprolol tartrate 50 mg tablet 50 mg PO BID 05/07/22 09/28/23 History sodium oxybate 500 mg/mL oral 1 g PO BID 05/07/22 09/28/23 History solution (Xyrem) cyanocobalamin (vitamin B-12) 100 mcg IM MONTHLY 11/08/22 09/28/23 History 1,000 mcg/mL injection solution celecoxib 200 mg capsule (Celebrex) 200 mg PO DAILY 08/19/23 09/28/23 History pantoprazole 40 mg tablet,delayed 40 mg PO DAILY 08/19/23 09/28/23 History release rimegepant 75 mg disintegrating 75 mg PO DAILY PRN Migraine 08/19/23 09/28/23 History tablet (Nurtec ODT) Headache pantoprazole 40 mg tablet,delayed 4 mg PO DIRECTED PRN 09/28/23 09/28/23 History release NAUSEA/VOMITING Patient History Medical History Status post myocardial infarction at age 24 Work related injury Surgical History S/P hysterectomy S/P cholecystectomy S/P appendectomy History of bilateral breast reduction surgery History of Julia-en-Y gastric bypass Family History Mother Breast cancer Ovarian cancer Myocardial infarction Pancreatitis Aunt Breast cancer Father Myocardial infarction Kidney failure Sister Myocardial infarction Brother Myocardial infarction Other Adrenal abnormality Denies family history of Colon cancer Prostate cancer Social History Smoking Status: Never smoker Second Hand Exposure: No; Do You Dip or Chew Tobacco: No; Hx Alcohol Use: No Hx Substance Use: No Preferred Language: Micronesian Communication Ability: Effective Visual Impairment: No Limitations Hearing Ability: Normal Sous Chef Required: No Beliefs That Will Affect Care: None marital status: Current Living Situation: Spouse Current Living Situation Comment: with current occupational status: retired Other Information That Helps Us Care for You: No Feels Safe at Home: Yes Safety Concerns: Feels Safe At This Time Childhood Exposure to Second-Hand Smoke: Yes Diet: regular caffeine: Yes Dental Care, Regularly: Yes Physical Activity Frequency: Daily Seatbelt Use: sometimes Sunscreen Use: Yes Assistive Devices: None Exam (Neuro) Physical Exam: HEENT: normocephalic grossly Neuro: Mental: AOx4, fluent speech, normal comprehension, no apraxia, no L/R confusion, no neglect CN: PERRL, Full EOM, symmetric face, midline T/U/P, grossly full ROM neck Motor: No abnormal movements, normal tone, 5/5 t/o bilaterally Sens: intact to touch b/l grossly Coord: intact FNT b/l Impression: 63 yo female with resolved migraine event. does not appears to be TIA/vascular event. pt now asymptomatic and mri negative. Recommendations: ok for discharge. continue her current meds. she can f/u with her neurologist as outpt. no new recommendations. Chart reviewed I have spent more than 50% educating patient about potential diagnosis and neurological evaluation and coordinating care with patient's treatment team. Total time spent (including chart review and coordination of care): 45 min (this includes chart review). Results & Data Vital Signs (Past 12 Hours) Vital Signs Temp Pulse Pulse Pulse Resp BP BP 09/29/23 08:20 65 16 103/67 09/29/23 08:14 36.8 C 62 20 95/60 L 09/29/23 07:33 09/29/23 07:16 63 09/29/23 04:30 36.7 C 60 18 102/63 09/29/23 00:08 36.6 C 68 18 109/69 09/28/23 23:14 73 09/28/23 23:00 36.6 C 69 18 109/62 09/28/23 22:30 71 14 09/28/23 22:30 97/58 L 09/28/23 22:28 89 14 105/63 09/28/23 22:27 70 15 09/28/23 22:18 69 15 09/28/23 22:00 72 17 09/28/23 22:00 105/63 09/28/23 21:55 72 09/28/23 21:39 Pulse Ox O2 Del Method 09/29/23 08:20 94 Room Air 09/29/23 08:14 91 Room Air 09/29/23 07:33 Room Air 09/29/23 07:16 09/29/23 04:30 94 Room Air 09/29/23 00:08 95 Room Air 09/28/23 23:14 09/28/23 23:00 95 Room Air 09/28/23 22:30 92 09/28/23 22:30 09/28/23 22:28 90 Room Air 09/28/23 22:27 91 09/28/23 22:18 91 09/28/23 22:00 94 09/28/23 22:00 09/28/23 21:55 09/28/23 21:39 95 PG Care Time/CCT Total # of Minutes Spent Total Time Spent with Patient: Total time spent is greater than 50% in coordination of care (as documented) at patient's floor/unit and/or counseling patient: Coding Level of Care Code 29530 IN/OBS CONSULT LVL 3,45M Diagnoses Migraine syndrome G43.909
--- NOTE | 2023-09-29 17:55 | Discharge Summary ---
Discharge Summary Date of Service September 29, 2023 Principal Dx & Hospital Course #1 = Principal Diagnosis (1) Left-sided weakness: Patient presented after sudden onset of headache, left arm weakness, and dizziness around 1300 on 09/28/2023. She had some weakness with shoulder flexion/abduction by report, this resolved by presentation to ED. -Patient complained of left-sided headache on arrival. She reports near identical symptoms including left-sided weakness and migraines in the past, and as recently as around 4 months ago. -She also has history of TIA and A-fib not on anticoagulation. -Last echo was w/ bubble studdy, no PFO. -Patient did not have any neurological deficits on presentation. -Is on atorva 20, ideally would uptitrate but has had issues with myalgias superimposed on her fibromyalgia. -CTA head/neck without acute findings. -Brain MRI without acute findings. -Neuro consulted feels as though this was a migraine event which has since resolved. Does not feel that this is TIA/vascular event. -Started Plavix 4continue on discharge (2) Migraine: As noted above. (3) Hyponatremia: Hyponatremic at 127 on admission -Did not appear overtly volume overloaded, feels she has reasonable p.o. intake, no known cancer. -Urine osmolality low at 320, urine sodium 49 - Fluid restricted while hospitalized. -Serum sodium WNL at 140 on 09/29/2023 (4) Seizure: Without recent seizure. Current episode did not have any loss of consciousness or seizure-like activity. Lamictal continued (5) COPD (chronic obstructive pulmonary disease): -From second hand smoking, no personal hx of tobacco use -Continue home inhalers -No wheezing, no evidence of exacerbation (6) Atrial fibrillation: -Did discuss A-fib anticoagulation on admission given her [id number] is at least 3 points given gender, hypertension, and history of prior TIA. 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 -Started Plavix 09/29/2023. Plan Chronic stable issues: Past history of seizure. No recent seizure. Continue Lamictal Esophageal reflux/erosive gastritis: No current symptoms continue PPI. Increased risk of bleeding with anticoagulation COPD: From secondhand smoking, no personal tobacco use. No acute exacerbation. Continue home inhalers CODE STATUS: DNR/DNI. Confirmed with patient on admission. Notes For Next Care Provider Medication Changes From Visit Started Plavix 75 mg daily 09/29/2023 Admission HPI Per Admitting Provider Haja is a 63-year-old female with a past medical history of seizure, COPD, hypertension, A-fib not on anticoagulation, and cervical radiculopathy who presented to the ER as a stroke alert for left posterior headache with left arm weakness. At time of emergency provider exam NIHSS was 0. CTAhead/neck without acute intracranial abnormality, chest x-ray without acute finding Normotensive with regular pulse at time of consultation Patient is with hyponatremia at 127, last baseline 1 year ago was 142. Has a mild leukocytosis without left shift. EKG on admission normal sinus rhythm, ST depressions in anteroseptal territory without chest pain. Patient did have a stress test which was normal September 2022 1pm sudden onset of severe L sided headache similar to prior migraines focused in the back and top. Usually gabapentin/Xyrem works well but hasn't needed it in a while. Last migraine was about 4 months ago. Had L arm weakness today with her headache that lasted for 20 minutes. Has had similar weakness in her arm with prior migraines. No numbness or tingling. No syncope. Dizzy and lighheaded with some room spinning, but did not pass out. +nausea. No recent colds or illnesses. +allergies. No cough. no sputum production. no fevers, chills, or sweats No chest pain. Very active gardinging withotu dyspnea/CP. Takes lasix for leg swelling, denies hx pulmonary edema but does have some positional dyspnea. Cannot lay back due to past back injury. Thinks she can tolerate an MRI. 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 Hx of afib. Was in afib about [address] Shahid in [facility]. Has not been recommended for afib ppx. Hx of TIA many years ago, no residual deficits. This felt different from migraines and has more shortness of breath and facial weakness and spasms at the time. Takes a baby aspirin daily No dysuria, hematuria, polyuria Medical History: Reviewed Medications: Reviewed Surgical History: Reviewed Family history: Reviewed Allergies: Reviewed Social History: No tobacco/etoh Code Status:Surrogate DM would be her son Oliver, would prefer her son over her as has had some dementia in older age. DNR/DNI Admission Exam Per Admitting Provider General: A&Ox3. NAD. Cooperative. HEENT: Atraumatic, normocephalic. Pulm: CTAB A&P. -wheezes, -rales, -rhonchi. Symmetrical chest rise. No increased work of breathing. No respiratory distress. Cardiac: RRR, -mrg. Radial pulses intact and symmetrical. Abdominal: Nontender, nondistended, soft. BS present. CRANIAL NERVES: II: Pupils equal and reactive, no relative afferent pupillary defect, no VF cuts III, IV, : EOM intact, no gaze preference or deviation, no nystagmus. 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 Skin: The skin was without rashes, erythema, edema, or bruising. Cardiac: Regular rate and rhythm without murmurs gallops or rubs. Pulm: Clear to auscultation bilaterally without wheezes, rales or rhonchi. No retractions or accessory muscle use. Abdominal: Positive bowel sounds x 4. Soft, nontender, without masses or organomegaly. No guarding or rebound tenderness. Neuro: A&O x3. No focal neurological deficits. Updated Medication List Medication Instructions Recorded Confirmed Type atorvastatin 20 mg tablet 20 mg PO DAILY 05/07/22 09/28/23 History diclofenac potassium 50 mg tablet 50 mg PO BID 05/07/22 09/28/23 History diclofenac sodium 1 % topical gel 4 g topical DIRECTED PRN Pain 05/07/22 09/28/23 History fluticasone 250 mcg-salmeterol 50 1 inh inhalation BID PRN Shortness 05/07/22 09/28/23 History mcg/dose blistr powdr for Of Breath Or Wheezing inhalation (Advair Diskus) furosemide 40 mg tablet 40 mg PO DAILY 05/07/22 09/28/23 History gabapentin 600 mg tablet 600 mg PO TID 05/07/22 09/28/23 History lamotrigine 100 mg tablet 100 mg PO BID 05/07/22 09/28/23 History meloxicam 15 mg tablet 15 mg PO DAILY 05/07/22 09/28/23 History metaxalone 800 mg tablet 800 mg PO TID PRN NEEDED PER PT. 05/07/22 09/28/23 History metoprolol tartrate 50 mg tablet 50 mg PO BID 05/07/22 09/28/23 History sodium oxybate 500 mg/mL oral 1 g PO BID 05/07/22 09/28/23 History solution (Xyrem) cyanocobalamin (vitamin B-12) 100 mcg IM MONTHLY 11/08/22 09/28/23 History 1,000 mcg/mL injection solution celecoxib 200 mg capsule (Celebrex) 200 mg PO DAILY 08/19/23 09/28/23 History pantoprazole 40 mg tablet,delayed 40 mg PO DAILY 08/19/23 09/28/23 History release rimegepant 75 mg disintegrating 75 mg PO DAILY PRN Migraine 08/19/23 09/28/23 History tablet (Nurtec ODT) Headache pantoprazole 40 mg tablet,delayed 4 mg PO DIRECTED PRN 09/28/23 09/28/23 History release NAUSEA/VOMITING clopidogrel 75 mg tablet 75 mg PO QAM #30 tabs 09/29/23 Rx Hospital Stay Data Consultations 09/28/23 18:42 ED Decision to Admit Stat 09/29/23 08:41 Consult Neurology Routine Diagnostic Imagining Performed 09/28/23 17:23 CT head/brain wo con Stat 09/28/23 17:26 CT angio head w con Stat CT angio neck with con Stat 09/28/23 19:56 MRI Brain [MR brain wo con] Urgent Pending Results Patient Have Any Pending Studies at Discharge: No Discharge Instructions Given to Patient (Per Discharging Provider) Maury Tee were admitted to the hospital due to sudden onset of headache, left arm weakness, and dizziness. You had a CTA of your head and neck which did not show any acute findings. Additionally, you had an MRI of your brain which was negative and showed no evidence of acute processes. You were hyponatremic (low sodium) on admission, however this is since resolved and is within normal limits at this time. You were seen by a neurologist while in the hospital, who felt as though this was NOT a TIA/vascular event. The neurologist felt as though this was a migraine event, which has now resolved. Upon discharge from the hospital: * Start Plavix 75 mg daily. This is a blood thinner. This prescription was sent to the [facility] pharmacy in [place]. * Continue your other current medications as prescribed. * You can follow-up with your neurologist outpatient. Please return to the hospital if you experience any of the following: Weakness/tingling/loss of feeling on one side of your face or body, sudden double vision or trouble seeing in 1 or both eyes, sudden trouble talking or slurring your speech, trouble understanding other people speaking, sudden/severe headache, dizziness, loss of balance, passing out, seizure, shortness of breath, difficulty breathing, or chest pain. B.E.F.A.S.T. is an easy way to remember the signs of stroke. When you see these signs, you know that you need to call 911 fast. B.E. F.A.S.T. stands for: * B is for balance. Sudden loss of balance or coordination. * E is for eyes. Vision changes in one or both eyes. * F is for face drooping. One side of the face is drooping or numb. When the person smiles, the smile is uneven. * A is for arm weakness. One arm is weak or numb. When the person lifts both arms at the same time, one arm may drift downward. * S is for speech difficulty. You may notice slurred speech or trouble speaking. The person can't repeat a simple sentence correctly when asked. * T is for time to call 911. If someone shows any of these symptoms, even if they go away, call 911 right away. Make note of the time the symptoms first appeared. It was a pleasure taking care of you while you were in the hospital, Latasha Raygoza PA-C Total Time Total Time Spent Total Time Spent (In Minutes): Greater than 30 minutes spent completing this discharge process including direct patient care, medication reconciliation, documentation, review of labs and images, and coordination of care. Coding Level of Care Code 29262 INP/OBS DISCH >30 MIN Diagnoses Left-sided weakness R53.1 Migraine G43.909 Hyponatremia E87.1 Seizure R56.9 COPD (chronic obstructive pulmonary disease) J44.9 Atrial fibrillation I48.91
--- NOTE | 2023-10-01 06:06 | Electrocardiogram Report ---
Test Reason : Blood Pressure : / mmHG Vent. Rate : 088 BPM Atrial Rate : 088 BPM P-R Int : 160 ms QRS Dur : 086 ms QT Int : 350 ms P-R-T Axes : 053 007 041 degrees QTc Int : 423 ms Normal sinus rhythm Nonspecific ST abnormality Abnormal ECG When compared with ECG of 19-AUG-2013 19:21, No significant change was found Confirmed by Filipe Diaz ([id number]) on 10/01/2023 6:06:14 AM Referred By: REFERRED SELF Confirmed By:Filipe Diaz
--- NOTE | 2023-10-01 06:07 | Electrocardiogram Report ---
Test Reason : Blood Pressure : / mmHG Vent. Rate : 085 BPM Atrial Rate : 085 BPM P-R Int : 166 ms QRS Dur : 088 ms QT Int : 392 ms P-R-T Axes : 036 -12 007 degrees QTc Int : 466 ms Normal sinus rhythm Possible Left atrial enlargement Cannot rule out Anterior infarct , age undetermined Nonspecific T wave abnormality Abnormal ECG When compared with ECG of 28-SEP-2023 17:46, No significant change was found Confirmed by Filipe Diaz ([id number]) on 10/01/2023 6:06:46 AM Referred By: REFERRED SELF Confirmed By:Filipe Diaz
[2023-10-03] MEDS ORDERED: CYANOCOBALAMIN 1000 MCG/ML VIAL IM SCH (09:00)
== END 2023-09-29 15:13 | disposition home or self-care (01) ==
LOC: 2N 17:07 → ED 17:07 → SUATTDRO 19:53 → 2N 22:42